=== PATIENT | male | born 1990 | race Caucasian/White ===

== ENCOUNTER 2017-01-16 04:27 | Emergency (ER) | payer OTHER ==
[~2017-01-16] VITALS: Ht 177.8 cm; Wt 81.6 kg
[2017-01-16 06:06] VITALS: BP 103/59
== END 2017-01-16 06:07 | disposition home or self-care (01) ==
LOC: EDBD 04:27 → EDUNIT# 04:27 → M ED 05:45
DX: F11.10 Opioid abuse, uncomplicated (principal); H93.19 Tinnitus, unspecified ear; T50.7X5A Adverse effect of analeptics and opioid receptor antagonists, initial encounter; Y92.89 Other specified places as the place of occurrence of the external cause; F17.200 Nicotine dependence, unspecified, uncomplicated; Z88.2 Allergy status to sulfonamides

== ENCOUNTER 2017-02-10 01:40 | Emergency (ER) | payer OTHER ==
[2017-02-10] MEDS ORDERED: NALOXONE INJ 2 MG/2 ML SYRINGE (J2310) IM STA (02:04)
[2017-02-10 04:15] VITALS: BP 110/52
== END 2017-02-10 04:38 | disposition home or self-care (01) ==
LOC: EDBD 01:40 → M ED 02:36
DX: F11.10 Opioid abuse, uncomplicated (principal); F17.200 Nicotine dependence, unspecified, uncomplicated; Z88.2 Allergy status to sulfonamides

== ENCOUNTER 2020-05-24 03:43 | Emergency (ER) | payer OTHER ==
[~2020-05-24] VITALS: Ht 177.8 cm; Wt 79.5 kg
[2020-05-24 05:00] VITALS: BP 122/66
== END 2020-05-24 05:16 | disposition home or self-care (01) ==
LOC: M ED 03:43
DX: T40.1X1A Poisoning by heroin, accidental (unintentional), initial encounter (principal); Y92.89 Other specified places as the place of occurrence of the external cause; F19.10 Other psychoactive substance abuse, uncomplicated; F17.200 Nicotine dependence, unspecified, uncomplicated; Z88.2 Allergy status to sulfonamides